=== PATIENT | female | born 1965 | race Caucasian/White ===

== ENCOUNTER 2018-07-10 06:40 | Day surgery (SDC) | payer OTHER ==
--- NOTE | 2018-06-25 21:39 | HP ---
HISTORY AND PHYSICAL: DATE OF ADMISSION/SURGERY: 07/10/18 DATE OF OFFICE VISIT: 06/25/18 SURGEON: America Cervantes MD * (DICTATED BY KATIE SHEIKH) PROCEDURE: Left knee arthroscopy with partial meniscectomy, possible chondroplasty, possible synovectomy. CHIEF COMPLAINT: Left knee pain. HISTORY OF PRESENT ILLNESS: Ms. Henriquez is a 53-year-old female with complaints of left knee pain. She has failed conservative treatment. An MRI shows a lateral meniscus tear. She has elected to proceed with surgery, which is scheduled for 07/10/18. PAST MEDICAL HISTORY: Hypertension. PAST SURGICAL HISTORY: Hernia repair, ovarian cyst excision, bladder sling, and ear tubes. CURRENT MEDICATIONS: 1. Losartan potassium. 2. Hydrochlorothiazide. 3. Myrbetriq. ALLERGIES: No known drug allergies. FAMILY HISTORY: Diabetes, heart disease, hypertension, stroke, RA, and cancer. SOCIAL HISTORY: She is a 53-year-old female. She lives with her . She does not smoke or use drugs. Uses occasional alcohol. REVIEW OF SYSTEMS: A complete 14-point review of systems was reviewed with the patient. It was all negative or noncontributory. PHYSICAL EXAMINATION GENERAL: She is well developed, well nourished, in no acute distress. VITAL SIGNS: She stands 67 inches tall, weighs 285 pounds. Her blood pressure is 122/84 and her heart rate is 80. HEENT: Normocephalic, atraumatic. NECK: Supple. No palpable lymph nodes. PULMONARY: Lungs are clear to auscultation bilaterally. CARDIO: Regular rate and rhythm. Strong S1, S2. ABDOMEN: Soft, nontender, nondistended. NEUROLOGICAL: She is alert and oriented x3. MUSCULOSKELETAL: Left lower extremity, the skin is intact. There are no open wounds or abrasions. She has positive Apley's and Saima's. Range of motion is 5 to 120 degrees of flexion with some pain. 2+ dorsalis pedis pulses and intact sensation. Her lower extremity muscle group strengths are intact at 5/ 5. She does have some tenderness along the medial and lateral joint line. ASSESSMENT AND PLAN: Ms. Henriquez is a 53-year-old female with continued complaints of left knee pain. An MRI confirms a lateral meniscus tear and she has elected to proceed with left knee arthroscopy with partial meniscectomy, possible chondroplasty, and possible synovectomy. The surgery is scheduled for 07/10/[address] Cervantes discussed the risks and benefits of the surgery at today's visit and all of her questions were answered. She will follow up with Dr. Cervantes 2 weeks after the surgery. KATIE SHEIKH [id number]/[facility] #: [id number] [facility]
[~2018-07-10 06:40] MED LIST: Buffered Lidocaine 0.9% SYRIN* 5 ML/SYR SYRINGE INTRADERM ONE; Sodium Citrate/Citric Acid* 15 ML UDC PO ONE
[2018-07-10] MEDS ORDERED: Sodium Citrate/Citric Acid* 15 ML UDC ONE (07:01)
[2018-07-10] MEDS ORDERED: ceFAZolin 1 GM in Dextrose (*) 1 GM/50 ML BAG IVPB ONE (07:01)
[2018-07-10] MEDS ORDERED: ceFAZolin 2 GM PREMIX (*) 2 GM/50 ML BAG IVPB ONE (07:01)
[2018-07-10] MEDS ORDERED: EPINEPHRINE 1 MG/ML 1 ML VIAL ONE (07:10)
[2018-07-10] MEDS ORDERED: methylPREDNISolone ACETATE 80* 80 MG/ML 1 ML VIAL ONE (07:10)
[2018-07-10] MEDS ORDERED: Ropivacaine (OR use only) 2 MG/ML 10 ML ONE (07:11)
[2018-07-10] MEDS ORDERED: Ketorolac INJ* 30 MG/ML 1 ML VIAL IV PRN (07:29)
[2018-07-10] MEDS ORDERED: Naloxone* 0.4 MG/ML 1 ML VIAL IV PRN (07:29)
[2018-07-10] MEDS ORDERED: Ondansetron INJ* 2 MG/ML VIAL IV PRN (07:29)
[2018-07-10] MEDS ORDERED: fentaNYL* 50 MCG/ML 2 ML VIAL (100 MCG VIAL) ONE ×3 (07:37→09:06)
[2018-07-10] MEDS ORDERED: Lidocaine 2% PF * 5 ML VIAL ONE (07:45)
[2018-07-10] MEDS ORDERED: Propofol* 10 MG/ML 20 ML BTL IV PUSH ONE ×2 (07:45→07:46)
[2018-07-10] MEDS ORDERED: Ketorolac INJ* 30 MG/ML 1 ML VIAL ONE (08:49)
[2018-07-10] MEDS: fentaNYL* 50 MCG/ML 2 ML VIAL (100 MCG VIAL) IV PRN ×4 (08:52→09:17)
[2018-07-10] MEDS ORDERED: oxyCODONE/Acetamin 5/325 MG* TAB ONE (09:00)
[2018-07-10 09:41] VITALS: BP 114/71
--- NOTE | 2018-07-11 13:58 | OP ---
OPERATIVE NOTE: DATE OF OPERATION: 07/10/18 DATE OF : 63 ATTENDING SURGEON: America Cervantes MD PURCHASING ADMINISTRATIVE ASSISTANT: KATIE Gutierrez Ms. did help throughout the procedure with preparation of the leg, wound retraction, manipul ation of the knee, and wound closure. ANESTHESIOLOGIST: Dr. Tolentino ANESTHESIA: General. PRE-OP DIAGNOSES: Left knee medial and lateral meniscal tear, jlqf-sv-wyoqqbvf osteoarthritis. POST-OP DIAGNOSES: Left knee radial and medial meniscal tear, parrot-beak type tear of the lateral m eniscus, [id number]-towarq degenerative osteoarthritis in the lateral and patellofemoral compartment s. OPERATIVE PROCEDURE: Left knee arthroscopy with partial medial meniscectomy and partial lateral meni scectomy. COMPLICATIONS: None. ESTIMATED BLOOD LOSS: Less than 25 cc. SPECIMEN: None. BRIEF HISTORY/INDICATION: Ms. Henriquez is a 53-year-old female with the acute-on- chronic left kne e pain and mechanical symptoms. She had MRI confirming a meniscal tear in the past. She failed cons ervative treatment with activity modification, intraarticular injection, and physical therapy. Due t o continued pain and sensation of locking in the knee, she elected to undergo left knee arthroscopy w ith partial meniscectomy, possible chondroplasty, possible synovectomy. Informed consent was obtaine d from the patient. She understood the risks of surgery included, but were not limited to bleeding, infection, damage to nearby structures, continued pain, need for further surgery, intraoperative frac ture, nerve palsy, continued progression of arthritis, continued arthritic pain, stroke, heart attack , blood clot, and . She wished to proceed. INTRAOPERATIVE FINDINGS: Intraoperatively, the patient was noted to have grade 3 and 4 Outerbridge c artilage changes in the patellofemoral and lateral compartments. She had a radial-type tear in the wh ite-red zone in the posterior medial meniscus and a complex tear, oblique-type tear in the white-red zone of the lateral meniscus. The patient had a linear component along the posterior portion of the lateral meniscus. DESCRIPTION OF PROCEDURE: Ms. Henriquez was identified in the preanesthesia unit. Her left lower ex tremity was marked as the correct operative site. Informed consent was signed and placed in the zoie t. The patient was taken to the operating room and placed under general anesthesia. Her left lower extremity was prepped and draped in the usual sterile fashion. Preop time-out was made to correctly identify the patient, side, and site. Appropriate perioperative antibiotics were given within 1 hour of incision. A standard anterolateral portal incision was made with a 15-blade and carried down through the capsul e. Trocar was introduced. As soon as the light and water sources were turned on, there was immediat e visualization of the suprapatellar pouch. A tour of the knee joint was performed. Patellofemoral compartment showed grade 3 and 4 Outerbridge cartilage changes with exposed subchondra l bone and significant cartilage loss. Medial gutter showed no loose body or plica. The medial comp artment showed some grade 2 and 3 Outerbridge cartilage changes along the medial femoral condyle and significant osteophyte along the anteromedial tibial plateau. There was a visible radial tear along the posterior medial meniscus. ACL and PCL appeared to be intact. The knee was placed in a figure-o f-4 position. Lateral meniscus had a complex meniscal tear, which was parrot-beak along the midporti on with a linear component along the posterior portion. There were grade 3 and 4 Outerbridge cartila ge changes with exposed subchondral bone and significant loss of cartilage along the lateral tibial p lateau and lateral femoral condyle. Under direct visualization, a medial portal incision was made with a 15-blade. A probe was introduce d and a second tour of the knee joint was performed. No additional findings were noted. A straight biter and shaver were used to perform partial medial meniscectomy in the white-red zone of the medial meniscus posteriorly. A smooth border of the meniscus was easily obtained. Further probing of the medial meniscus showed no additional tears or displaced fragments. Next, the knee was placed in a fi gure-of-4 position. A straight biter and WideBiter were used to perform partial lateral meniscectomy in the white-red zone. This partial meniscectomy involved the majority of the lateral meniscus. Ra diofrequency ablation wand and shaver were used to further smooth the edge of the lateral meniscus. Further probing of the meniscus showed no additional tears or displaced fragments. The knee was copiously irrigated with sterile saline. All instruments were removed. The incisions w ere closed using interrupted 3-0 nylon suture. Intraarticular injection of 80 mg Depo-Medrol and 6 cc ropivacaine was placed in the knee joint. The patient's incisions were covered with Xeroform, 4x4s, and Webril. Jose wrap and cold pack were placed over this. The patient's anesthesia was reversed without difficulty. She was taken to the PACU in stable condit ion. Intended weightbearing will be weightbearing as tolerated. Intended DVT prophylaxis will be as pirin. She will follow up in 2 weeks' time. [id number]/[facility] #: [id number]
== END 2018-07-10 09:57 | disposition home or self-care (01) ==
LOC: OR 06:40
PROVIDERS: ATTEND Orthopaedic Surgery Adult Reconstructive Orthopaedic Surgery
DX: S83.282A Other tear of lateral meniscus, current injury, left knee, initial encounter (principal); S83.242A Other tear of medial meniscus, current injury, left knee, initial encounter; X58.XXXA Exposure to other specified factors, initial encounter; Y92.9 Unspecified place or not applicable; I10 Essential (primary) hypertension; Z68.41 Body mass index [BMI] 40.0-44.9, adult; Z87.891 Personal history of nicotine dependence; K58.9 Irritable bowel syndrome, unspecified; M19.90 Unspecified osteoarthritis, unspecified site
CPT/HCPCS: 81025; A9270-GY; J0690; J1040; J1885; J2704; J2795; J3010

== ENCOUNTER 2018-11-10 12:02 | Emergency (ER) | payer OTHER ==
--- NOTE | 2018-11-10 12:44 | ED ---
GI/ HPI - HPI Summary HPI Summary: The pt is a 53 y/o female presenting to [facility] c/o heavy vaginal bleeding with clots since 7 days ago. She notes crushing LLQ pain rated 4/10 in severity. She changed 4 pads an hour 3 days ago, 5-6 pads 2 days ago, 4 yesterday and 2 today morning. She got sent to the ED by the Rd Manager bridal consultant. The pt denies N/V/ D and pedal edema. The sx are similar to a past episode of an R ovarian cyst treated by surgery. She notes that she is undergoing menopause. Home Medications Medication Instructions Recorded Confirmed Type Losartan TAB* [Cozaar TAB*] 50 mg PO QAM 11/07/12 11/10/18 History Hydrochlorothiazide TAB* 25 mg PO QAM 06/26/18 11/10/18 History [Hydrodiuril TAB*] - History of Current Complaint Chief Complaint: EDVaginalBleeding Time Seen by Provider: 11/10/18 12:41 Stated Complaint: HEAVY BLEEDING Hx Obtained From: Patient Hx Last Menstrual Period: current Onset/Duration: Started Weeks Ago - 1 week, Still Present, Worse Since - Today Timing: Constant Severity: Moderate Current Severity: Moderate Number of Pads per Hour: 4 Pain Intensity: 4 Location of Pain: Groin Additional Location for Females: Ovaries - L Associated Signs and Symptoms: Negative: Nausea, Vomiting, Diarrhea Additional Signs & Symptoms: Positive: Vaginal Bleeding Aggravating Factor(s): Nothing Alleviating Factor(s): Position - Allergy/Home Medications Allergies/Adverse Reactions: Allergies Allergy/AdvReac Type Severity Reaction Status Date / Time No Known Allergies Allergy Verified 06/26/18 15:25 PMH/Surg Hx/FS Hx/Imm Hx Previously Healthy: No Endocrine/Hematology History: Denies: Hx Diabetes, Hx Thyroid Disease Cardiovascular History: Reports: Hx Hypertension Denies: Hx Congestive Heart Failure, Hx Pacemaker/ICD, Other Cardiovascular Problems/Disorders Respiratory History: Denies: Hx Asthma, Hx Chronic Obstructive Pulmonary Disease (COPD), Other Respiratory Problems/Disorders GI History: Reports: Hx Irritable Bowel - patient states she has 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 Denies: Hx Ulcer, Other GI Disorders History: Reports: Other Problems/Disorders - weak bladder, sees Dr Moreno- takes medication Denies: Hx Renal Disease Musculoskeletal History: Reports: Hx Arthritis - Osteoarthritis bilateral knees , Other Musculoskeletal History - impingement in left shoulder Sensory History: Reports: Hx Contacts or Glasses - Contacts and glasses, Hx Hearing Aid Opthamlomology History: Reports: Hx Contacts or Glasses - Contacts and glasses Neurological History: Denies: Other Neuro Impairments/Disorders Psychiatric History: Denies: Hx Panic Disorder - Cancer History Cancer Type, Location and Year: None reported Hx Chemotherapy: No Hx Radiation Therapy: No - Surgical History Surgery Procedure, Year, and Place: Ovarian Cyst removal; bladder sling; nose repaired; R hernia age 2 mos Hx Anesthesia Reactions: No Infectious Disease History: No Infectious Disease History: Denies: Hx Hepatitis, Hx Human Immunodeficiency Virus (HIV), Traveled Outside the [place] in Last 30 Days - Family History Known Family History: Positive: Cardiac Disease, Hypertension, Diabetes, Other - RA, Cancer, [place] - Social History Occupation: Employed Full-time Lives: With Family Alcohol Use: Rare Substance Use Type: Reports: None Smoking Status (MU): Former Smoker Amount Used/How Often: 1 pack every 3 days for 4 years Have You Smoked in the Last Year: No Review of Systems Positive: Abdominal Pain - LLQ . Negative: Vomiting, Diarrhea, Nausea Genitourinary: Other - Vaginal bleeding with clots Positive: no symptoms reported Negative: Edema All Other Systems Reviewed And Are Negative: Yes Physical Exam - Summary Physical Exam Summary: Appearance: Well appearing, no pain distress Skin: warm, dry, reflects adequate perfusion Head/face: normal Eyes: EOMI, ANDREWS ENT: normal Neck: supple, non-tender Respiratory: CTA, breath sounds present Cardiovascular: RRR, pulses symmetrical Abdomen: tender in the LLQ , soft Bowel sounds : present Musculoskeletal: normal, strength/ROM intact Neuro: normal, sensory motor intact, A&Ox3 Triage Information Reviewed: Yes Vital Signs On Initial Exam: Initial Vitals Temp Pulse Resp BP Pulse Ox 97.8 F 80 16 147/85 100 11/10/18 12:04 11/10/18 12:04 11/10/18 12:04 11/10/18 12:04 11/10/18 12:04 Vital Signs Reviewed: Yes Diagnostics - Vital Signs Vital Signs Temp Pulse Resp BP Pulse Ox 11/10/18 12:04 97.8 F 80 16 147/85 100 - Laboratory Result Diagrams: 11/10/18 13:32 11/10/18 13:32 Lab Statement: Any lab studies that have been ordered have been reviewed, and results considered in the medical decision making process. - Ultrasound No standard instances Ultrasound Interpretation Completed By: Radiologist Summary of Ultrasound Findings: TRANSVAGINAL US IMPRESSION: THE ENDOMETRIUM IS THICKENED MEASURING UP TO 1.5 CM. The ED physician reviewed this radiology report. GIGU Course/Dx - Course Course Of Treatment: A 53 year-old F presents to the ED with a CC of heavy vaginal bleeding with clots since 7 days ago. . She note crushing LLQ pain but denies N/V/D and pedal edema. A physical exam revealed LLQ tenderness. A transvaginal US reveals endometrial thickening reaching 1.5 cm. I discussed he careof the pt with Dr. Kelley who recommended discharging the pt with a referral to the Rd Manager office.Patient will be discharged with a final Dx of Vaginal bleeding. Pt is agreeable with this plan. Allergies noted. - Diagnoses Differential Diagnoses - Female: Other - DUB/fibroid uterus Provider Diagnoses: Vaginal bleeding - Physician Notifications Discussed Care Of Patient With: Dean Dior - grinder gear Time Discussed With Above Provider: 14:28 Instructed by Provider To: Have Pt Call For Appt. Discharge - Sign-Out/Discharge Documenting (check all that apply): Patient Departure - DC - Discharge Plan Condition: Stable Disposition: HOME Patient Education Materials: Dysfunctional Uterine Bleeding (ED) Referrals: Luis Valentin MD [Primary Care Provider] - Dean Dior MD [Medical Doctor] - Additional Instructions: Follow up with Dr. Dior-Rd Manager as soon as possible. Return to the ED for any new or worsening symptoms. - Billing Disposition and Condition Condition: STABLE Disposition: Home - Attestation Statements Document Initiated by Scribe: Yes Documenting Scribe: Mag Brice Provider For Whom Asiya is Documenting (Include Credential): Dr. Emerson Sims MD Scribe Attestation: Mag Mccoy , scrnishanted for Dr. Emerson Sims MD on 11/10/18 at 1642. Scribe Documentation Reviewed: Yes Provider Attestation: The documentation as recorded by the Mag chavez accurately reflects the service I personally performed and the decisions made by me, Dr. Emerson Sims MD Status of Scribe Document: Viewed
[2018-11-10 13:40] LABS: ABS Basophils 0.1 10^3/ul (0-0.2); ABS Eosinophils 0.2 10^3/ul (0-0.6); ABS Monocytes 0.8 10^3/ul (0-0.8); ABS Neutrophils 8.7 10^3/ul (1.5-7.7); ABS Nucleated RBC 0 10^3/ul; Eosinophil % 1.9 %; Hematocrit 36 % (35-47); Mean Corpuscular HGB Conc 34 g/dl (31-36); Mean Corpuscular Hemoglobin 27 pg (27-31); Mean Corpuscular Volume 79 fL (80-97); Mean Platelet Volume 7.4 fL (7.4-10.4); Nucleated Red Blood Cells % 0; Platelet Count 391 10^3/ul (150-450); Red Blood Count 4.48 10^6/ul (4.00-5.40); Red Cell Distribution Width 16 % (10.5-15); White Blood Count 11.9 10^3/ul (3.5-10.8)
[2018-11-10 13:51] LABS: Activated Partial Thrombo Time 30.9 seconds (26.0-36.3); INR 0.94 (0.77-1.02)
[2018-11-10 14:01] LABS: ALT 16 U/L (7-52); AST 17 U/L (13-39); Albumin 3.9 g/dL (3.2-5.2); Albumin/Globulin Ratio 1.1 (1-3); Alkaline Phosphatase 77 U/L (34-104); Anion Gap 7 mmol/L (2-11); BUN/Creatinine Ratio 15.4 (8-20); Blood Urea Nitrogen 10 mg/dL (6-24); CO2 Carbon Dioxide 28 mmol/L (22-32); Calcium 9.3 mg/dL (8.6-10.3); Chloride 104 mmol/L (101-111); Globulin 3.6 g/dL (2-4); Glucose 92 mg/dL (70-100); Potassium 3.5 mmol/L (3.5-5.0); Sodium 139 mmol/L (135-145); Total Protein 7.5 g/dL (6.4-8.9)
[2018-11-10 14:10] LABS: HCG Pregnancy < 0.60 mIU/mL
[2018-11-10 14:52] VITALS: BP 141/81
== END 2018-11-10 14:51 | disposition home or self-care (01) ==
LOC: ED 12:02
DX: N93.9 Abnormal uterine and vaginal bleeding, unspecified (principal); R10.32 Left lower quadrant pain; Z87.891 Personal history of nicotine dependence
CPT/HCPCS: 36415; 76830; 80053; 83690; 84702; 85025; 85610; 85730; 99283

== ENCOUNTER 2019-03-06 05:41 | Day surgery (SDC) | payer OTHER ==
[~2019-03-06 05:41] MED LIST changes: -Buffered Lidocaine 0.9% SYRIN* 5 ML/SYR SYRINGE INTRADERM ONE; +Buffered Lidocaine 1% SYRIN* 1 ML/SYRINGE INTRADERM ONE; -Sodium Citrate/Citric Acid* 15 ML UDC PO ONE
[2019-03-06] MEDS ORDERED: Lactated Ringers 1000 ML Bag* 1,000 ML IV SCH (06:00)
[2019-03-06] MEDS ORDERED: Acetaminophen TAB* 325 MG PO ONE (06:00)
[2019-03-06] MEDS ORDERED: Acetaminophen TAB* 325 MG ONE (06:08)
[2019-03-06] MEDS ORDERED: Buffered Lidocaine 1% SYRIN* 1 ML/SYRINGE INTRADERM ONE (06:08)
[2019-03-06 06:36] LABS: Hematocrit 33 % (33-41); Hemoglobin 11.4 g/dL (12.0-16.0); Mean Corpuscular HGB Conc 34 g/dL (31-36); Mean Corpuscular Hemoglobin 25 pg (27-31); Mean Corpuscular Volume 74 fL (80-97); Mean Platelet Volume 7.4 fL (7.4-10.4); Platelet Count 325 10^3/uL (150-450); Red Blood Count 4.52 10^6 /uL (3.70-4.87); Red Cell Distribution Width 16 % (10.5-15); White Blood Count 9.7 10^3/uL (3.5-10.8)
[2019-03-06] MEDS ORDERED: Silver Nitrate/Potassium Nitr* 1 EA STICK ONE (07:07)
[2019-03-06] MEDS ORDERED: fentaNYL* 50 MCG/ML 2 ML VIAL (100 MCG VIAL) ONE (07:22)
[2019-03-06] MEDS ORDERED: Midazolam* 1 MG/ML 2 ML VIAL (2 MG) ONE (07:22)
[2019-03-06] MEDS ORDERED: Lidocaine 2% PF * 5 ML VIAL ONE (07:23)
[2019-03-06] MEDS ORDERED: Ondansetron INJ* 2 MG/ML VIAL ONE (07:23)
[2019-03-06] MEDS ORDERED: Dexamethasone IV* 4 MG/ML 1 ML (4 MG) ONE (07:23)
[2019-03-06] MEDS ORDERED: Propofol* 10 MG/ML 20 ML BTL ONE (07:23)
[2019-03-06] MEDS ORDERED: Famotidine IV* 10 MG/ML 2 ML (20 mg) ONE (07:27)
[2019-03-06] MEDS ORDERED: Naloxone* 0.4 MG/ML 1 ML VIAL IV PRN (07:53)
[2019-03-06] MEDS ORDERED: Acetaminophen TAB* 325 MG PO PRN (07:53)
[2019-03-06] MEDS ORDERED: PROCHLORPERAZINE INJ 5 MG/ML 2 ML VIAL IV PRN (07:53)
[2019-03-06] MEDS ORDERED: DiMENhydriNATE IV* 50 MG/ML VIAL IV PUSH PRN (07:53)
[2019-03-06] MEDS ORDERED: Levalbuterol 0.63MG/3ML NEB* UNIT OF USE INH PRN (07:53)
[2019-03-06] MEDS ORDERED: fentaNYL* 50 MCG/ML 2 ML VIAL (100 MCG VIAL) IV PRN (07:53)
[2019-03-06] MEDS ORDERED: diPHENhydraMINE IV* 50 MG/ML 1 ml VIAL (BENADRYL) IV PRN (07:53)
[2019-03-06] MEDS ORDERED: Ondansetron INJ* 2 MG/ML VIAL IV PRN (07:53)
[2019-03-06] MEDS ORDERED: HYDROcodone/ACETAMIN 5-325 MG* 1 TAB PO PRN ×2 (07:53)
[2019-03-06 09:25] VITALS: BP 159/90
--- NOTE | 2019-03-06 10:05 | OP ---
DATE OF OPERATION: 03/06/19 - [facility] DATE OF : 63 SURGEON: Dean Dior MD. ANESTHESIOLOGIST: Dr. Stack. ANESTHESIA: General endotracheal. PRE-OP DIAGNOSIS: Abnormal uterine bleeding. POST-OP DIAGNOSES: Abnormal uterine bleeding and endometrial polyp. OPERATIVE PROCEDURE: 1. Hysteroscopy. 2. Dilation and curettage. 3. Endometrial polypectomy with MyoSure 4. Endometrial ablation using NovaSure. ESTIMATED BLOOD LOSS: Minimal. URINE OUTPUT: 50 cc. IV FLUID: 700 cc lactated Ringer's. HYSTEROSCOPIC DEFICIT: 200 cc of normal saline. MATERIALS TO LAB: Endometrial curettings and endometrial polyp. INDICATIONS: This patient was a 53-year-old 2, para 2 who presented after having significant and heavy abnormal uterine bleeding. An ultrasound was essentially unremarkable without significantly thickened endometrium and an endometrial biopsy returned with benign endometrium. We discussed the patient' s options and she desired to proceed with an endometrial ablation. She was extensively counseled and consent was signed. FINDINGS: Uterine cavity normal other than an apparent posterior endometrial polyp. The polyp was fairly large, but very smooth and benign in appearance. COMPLICATIONS: None. DESCRIPTION OF PROCEDURE: The risks, benefits, and alternatives were described to the patient and informed consent was obtained. The patient was taken to the operating room with IV running where general anesthesia was induced and found to be adequate. The patient was prepped and draped in the normal sterile fashion in the high lithotomy position [facility]. A time-out was preformed. The bladder was emptied. A bivalve speculum was placed in the vagina and a single tooth tenaculum was placed on the anterior cervix. The uterus sounded to 11 cm. The cervix was then gently dilated using Hanks dilators. A diagnostic hysteroscope was then advanced through the cervix and into the uterine cavity with saline running. On entry into the uterine cavity, there was a moderate sized endometrial polyp present on the posterior aspect of the uterine wall. No other abnormalities were noted. The hysteroscope was then removed and a MyoSure hysteroscope was prepared. Once the MyoSure hysteroscope was advanced into the uterus, a MyoSure LITE device was then prepared and used to completely resect the endometrial polyp. Once this had been completely removed the hysteroscope was removed. A curetting of the endometrial cavity was performed with curettings collected on Kerry. The NovaSure device was then prepared. The device was advanced through the cervix and into the uterine cavity and opened. Cavity length was measured at 5.5 cm and width was 4.2 cm. Power calculated at 127 and after a negative cavity assessment, the ablation was performed for 95 sec. At that time, the device was removed. The hysteroscope was replaced into the uterine cavity and there appeared to be good ablation of the entire endometrial surface. The hysteroscope was removed. The tenaculum was removed from the cervix with good hemostasis. The speculum was then removed and the patient was returned to the supine position. The patient tolerated the procedure well. Sponge, lap, and needle counts were correct x2. [id number]/[facility] #: [id number] [facility]
== END 2019-03-06 09:34 | disposition home or self-care (01) ==
LOC: OR 05:41
PROVIDERS: ATTEND Obstetrics & Gynecology
DX: N93.9 Abnormal uterine and vaginal bleeding, unspecified (principal); N84.0 Polyp of corpus uteri; I10 Essential (primary) hypertension; Z87.891 Personal history of nicotine dependence; Z68.42 Body mass index [BMI] 45.0-49.9, adult; K58.9 Irritable bowel syndrome, unspecified
CPT/HCPCS: 36415; 81025; 85027; 88305; A9270-GY; J1100; J2250; J2405; J2704; J3010

== ENCOUNTER 2020-02-02 13:22 | Observation (INO) | payer OTHER ==
--- OUTSIDE RECORDS SUMMARY | 2020-02-02 13:39 | XMS REPORT | Continuity of Care Document ---
:1965 External Reference #:[id number] Author Name Savita Gillis O.D. (transmitted by agent of provider Tee Umanzor) Address [address] [place] [address] Care Team Providers Name Role Phone Luis Valentin M.D. - Family Medicine Care Team Information Paralegal Problems Active Problems Provider Date Essential hypertension Onset: Chalazion Caroline Brower O.D. Onset: 07/04/2015 Internal hordeolum Savita Gillis O.D. Onset: 07/07/2015 Nuclear senile cataract Savita Gillis O.D. Onset: 06/12/2018 Regular astigmatism Savita Gillis O.D. Onset: 06/12/2018 Presbyopia Savita Gillis O.D. Onset: 06/12/2018 Myopia Savita Gillis O.D. Onset: 01/13/2020 Social History Type Date Description Comments Sex Unknown ETOH Use Occasionally consumes alcohol Tobacco Use Start: Unknown Patient has never smoked Recreational Drug Use Denies Drug Use Smoking Status Reviewed: 01/13/20 Patient has never smoked Allergies, Adverse Reactions, Alerts Description No Known Drug Allergies Medications Active Medications SIG Qnty Indications Ordering Date Provider Losartan Potassium Unknown 50mg Tablets Hydrochlorothiazide Daily Unknown 25mg Tablets Olmesartan Medoxomil Take 1 Tablet By Unknown 20mg Tablets Mouth Once Daily For Blood Pressure Sertraline HCL Take 1 To 2 Unknown 25mg Tablets Tablets By Mouth In The Morning For Anxiety And For Depression Immunizations Description No Information Available Vital Signs Description No Information Available Results Description No Information Available Procedures Description No Information Available Medical Devices Description No Information Available Encounters Description No Information Available Assessments Date Code Description Provider 01/13/2020 H25.13 Age-related nuclear cataract, bilateral Savita Gillis O.D. 01/13/2020 H52.223 Regular astigmatism, bilateral Savita Gillis O.D. 01/13/2020 H52.4 Presbyopia Savita Gillis O.D. 01/13/2020 H52.13 Myopia, bilateral Savita Gillis O.D. Plan of Treatment 01/13/2020 - aSvita Gillis O.D.H25.13 Age-related nuclear cataract, bilateralComments:Smoking can increase the risk of developing or worsening any eye related disease, as well as affect your overall health. If you are a smoker , we strongly recommend that you quit.If you are not a smoker, we strongly recommend that you do not start. You have nuclear sclerosis, which is hardening of your natural lens. This is normal as a person ages.Follow up:1 Year Follow Up DFE/CL'S FIT You can expect to have your eyes dilated at your next visit. If Dr. Gillis orders any additional testing, it may require extra time. We recommend that you bring sunglasses, as dilation drops often make you light sensitive until they wear off. We always recommend you bring someone to drive you home if you are uncomfortable driving with your eyes dilated. If you have any questions before your next visit, feel free to call our office at [phone].H52.223 Regular astigmatism, bilateralComments:Astigmatism is a common vision condition that happens when a person's cornea is not symmetrical. Dr. Gillis has given you a prescription to correct for this.H52.4 PresbyopiaComments:You have presbyopia. This is when the lens in your eye loses the ability to change focus, and happens as we age. A pair of reading glasses will help you see up close.H52.13 Myopia, bilateralComments:You have Myopia, or near sightedness. I have given you a prescription for glasses. Functional Status Description No Information Available Mental Status Description No Information Available Referrals Description No Information Available
--- NOTE | 2020-02-02 14:21 | ED ---
Syncope/Near Syncope - HPI Summary HPI Summary: This patient is a 54 y/o female presenting to [facility] for a syncopal episode today. Patient reports she has been feeling lightheaded since yesterday. She notes today while working at [employer] she felt lightheaded and was placed in a wheelchair. She notes while sitting on the wheelchair she passed out. Patient estimates she passed out for about less than 1 minute. She denies chest pain, shortness of breath, headache, blurry vision, nausea, vomiting, constipation. Patient does not have hx of syncope. PMHx: HTN. Denies hx of DM. Denies tobacco and drug use. Patient reports occasional alcohol use. Home Medications Medication Instructions Recorded Confirmed Type Hydrochlorothiazide TAB* 25 mg PO DAILY 06/26/18 02/02/20 History [Hydrodiuril TAB*] Meclizine TAB* [Antivert 12.5 TAB*] 12.5 - 25 mg PO TID PRN 02/02/20 02/02/20 History Multivitamins/Minerals TAB* 1 tab PO DAILY 02/02/20 02/02/20 History [Theragran/minerals TAB*] Olmesartan (NF) [Benicar (NF)] 20 mg PO DAILY 02/02/20 02/02/20 History Sertraline* [Zoloft*] 25 - 50 mg PO DAILY 02/02/20 02/02/20 History - History Of Current Complaint Chief Complaint: EDSyncope Time Seen by Provider: 02/02/20 14:13 Hx Obtained From: Patient Onset/Duration: Sudden Onset Timing: Seconds Context: Witnessed Aggravating Factor(s): Nothing Alleviating Factor(s): Nothing Associated Signs And Symptoms: Other - NEGATIVE: chest pain, SOB, headache, blurry vision, nausea, vomiting, constipation. - Allergies/Home Medications Allergies/Adverse Reactions: Allergies Allergy/AdvReac Type Severity Reaction Status Date / Time No Known Allergies Allergy Verified 02/02/20 13:33 Home Medications: Home Medications Hydrochlorothiazide TAB* [Hydrodiuril TAB*] 25 mg PO DAILY 06/26/18 [History Confirmed 02/02/20] Meclizine TAB* [Antivert 12.5 TAB*] 12.5 - 25 mg PO TID PRN 02/02/20 [History Confirmed 02/02/20] Multivitamins/Minerals TAB* [Theragran/minerals TAB*] 1 tab PO DAILY 02/02/20 [ History Confirmed 02/02/20] Olmesartan (NF) [Benicar (NF)] 20 mg PO DAILY 02/02/20 [History Confirmed ] Sertraline* [Zoloft*] 25 - 50 mg PO DAILY 02/02/20 [History Confirmed 02/02/20] PMH/Surg Hx/FS Hx/Imm Hx Endocrine/Hematology History: Denies: Hx Diabetes, Hx Thyroid Disease Cardiovascular History: Reports: Hx Hypertension - ON DAILY MEDS, STATES WELL CONTROLLED Denies: Hx Congestive Heart Failure, Hx Pacemaker/ICD, Other Cardiovascular Problems/Disorders Respiratory History: Denies: Hx Asthma, Hx Chronic Obstructive Pulmonary Disease (COPD), Other Respiratory Problems/Disorders GI History: Reports: Hx Irritable Bowel - patient states she has 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 Denies: Hx Ulcer, Other GI Disorders History: Reports: Other Problems/Disorders - weak bladder, sees Dr Moreno- takes medication Denies: Hx Renal Disease Musculoskeletal History: Reports: Hx Arthritis - Osteoarthritis bilateral knees , HAD SURGERY LFT KNEE 06/2019, Other Musculoskeletal History - impingement in left shoulder; AFTER KNEE SURGERY FELL & REINJURED KNEE Sensory History: Reports: Hx Contacts or Glasses - Contacts and glasses WILL NOT BE WEARING EITHER, Hx Hearing Aid Opthamlomology History: Reports: Hx Contacts or Glasses - Contacts and glasses WILL NOT BE WEARING EITHER Neurological History: Denies: Other Neuro Impairments/Disorders Psychiatric History: Denies: Hx Panic Disorder - Cancer History Cancer Type, Location and Year: None reported Hx Chemotherapy: No Hx Radiation Therapy: No - Surgical History Surgical History: Yes Surgery Procedure, Year, and Place: 2 0O9 Ovarian Cyst removal; [facility]. 2007bladder sling; [facility]. 2006 nose repaired; [facility]. 1966 1YRS OLD R hernia REPAIR. Ablation. Left knee surgery Hx Anesthesia Reactions: No Infectious Disease History: No Infectious Disease History: Denies: Hx Hepatitis, Hx Human Immunodeficiency Virus (HIV), Traveled Outside the [place] in Last 30 Days - Family History Known Family History: Positive: Cardiac Disease, Hypertension, Diabetes, Other - RA, Cancer, [place] - Social History Alcohol Use: Rare Alcohol Amount: 1-2 GLASSES MONTH Substance Use Type: Reports: None Smoking Status (MU): Former Smoker Type: Cigarettes Amount Used/How Often: 1 pack every 3 days for 4 years Have You Smoked in the Last Year: No Review of Systems Negative: Fever Negative: Blurred Vision Negative: Chest Pain Negative: Shortness Of Breath Negative: Vomiting, Nausea, Other - NEGATIVE: constipation Neurological/Mental Status: Other - POSITIVE: lightheadedness Positive: Syncope. Negative: Headache All Other Systems Reviewed And Are Negative: Yes Physical Exam - Summary Physical Exam Summary: VITAL SIGNS: Reviewed. GENERAL: Patient is a well-developed and obese female who is lying comfortable in the stretcher. Patient is not in any acute respiratory distress. HEAD AND FACE: No signs of trauma. No ecchymosis, hematomas or skull depressions. No sinus tenderness. EYES: PERRLA, EOMI x 2, No injected conjunctiva, no nystagmus. EARS: Hearing grossly intact. Ear canals and tympanic membranes are within normal limits. MOUTH: Oropharynx within normal limits. NECK: Supple, trachea is midline, no adenopathy, no JVD, no carotid bruit, no c- spine tenderness, neck with full ROM. CHEST: Symmetric, no tenderness at palpation LUNGS: Clear to auscultation bilaterally. No wheezing or crackles. CVS: Regular rate and rhythm, S1 and S2 present, no murmurs or gallops appreciated. ABDOMEN: Soft, non-tender. No signs of distention. No rebound, no guarding, and no masses palpated. Bowel sounds are normal. EXTREMITIES: FROM in all major joints, no edema, no cyanosis or clubbing. NEURO: Alert and oriented x 3. No acute neurological deficits. Speech is normal and follows commands. SKIN: Dry and warm GCS: 15 Triage Information Reviewed: Yes Vital Signs On Initial Exam: Initial Vitals Temp Pulse Resp BP Pulse Ox 98.4 F 74 16 131/94 99 02/02/20 13:30 02/02/20 13:30 02/02/20 13:30 02/02/20 13:30 02/02/20 13:30 Vital Signs Reviewed: Yes Procedures - Sedation Patient Received Moderate/Deep Sedation with Procedure: No Diagnostics - Vital Signs Vital Signs Temp Pulse Resp BP Pulse Ox 02/02/20 13:30 98.4 F 74 16 131/94 99 - Laboratory Result Diagrams: 02/02/20 14:20 02/02/20 14:20 Lab Statement: Any lab studies that have been ordered have been reviewed, and results considered in the medical decision making process. - Radiology Chest XR Radiology Interpretation Completed By: Radiologist Summary of Radiographic Findings: IMPRESSION: No radiographic evidence of acute cardiopulmonary disease. Dr. Potter has reviewed this report. - CT Brain CT CT Interpretation Completed By: Radiologist Summary of CT Findings: IMPRESSION: Normal CT of the brain. Dr. Potter has reviewed this report. - EKG 14:24 Cardiac Rate: NL - at 68 bpm EKG Rhythm: Sinus Rhythm EKG Comparison: No Significant Change - similar to prior on 10/24/15. Summary of EKG Findings: EKG at 1424 shows sinus rhythm at a rate of [address] elevations. Q wave in leads III and aVF. Diffuse ST abnormalities. Similar to prior EKG on 10/24/15. This EKG was interpreted and reviewed by ED physician. Re-Evaluation - Re-Evaluation First Eval Re-Evaluation Time: 16:40 Comment: Reviewed results with patient. Discussed admission plan with patient and she agrees. Course/Dx Assessment/Plan: This patient is a 54 y/o female presenting to [facility] for a syncopal episode today. Patient reports she has been feeling lightheaded since yesterday. She notes today while working at [employer] she felt lightheaded and was placed in a wheelchair. She notes while sitting on the wheelchair she passed out. Patient estimates she passed out for about less than 1 minute. She denies chest pain, shortness of breath, headache, blurry vision, nausea, vomiting, constipation. Patient does not have hx of syncope. PMHx: HTN. Denies hx of DM. Denies tobacco and drug use. Patient reports occasional alcohol use. In the ED course the patient was placed in a acquisition marketing manager, IV access was obtained, IV fluids were started. Past medical records were reviewed. Blood test w/o a significant abnormality except for WBCs of 13.7, potassium of 3.3, chloride is 98, glucose is 112, magnesium is 1.7. Head CT impression: No acute pathology. Chest x-ray impression: No acute cardiopulmonary pathology. I discussed my physical exam and test results with Dr. Daugherty from the hospitalist services and she agrees to admit the patient to her services. The patient is hemodynamically stable, alert and oriented x 3. - Diagnoses Provider Diagnoses: Syncope - Physician Notifications Discussed Care of Patient With: Connie Daugherty - hospitalist Time Discussed With Above Provider: 18:53 Instructed by Provider To: Admit As Inpatient Discharge ED - Sign-Out/Discharge Documenting (check all that apply): Patient Departure - Admit to [facility] - Discharge Plan Condition: Stable Disposition: ADMITTED TO [facility] Referrals: Lius Valentin MD [Primary Care Provider] - - Attestation Statements Document Initiated by Scribe: Yes Documenting Scribe: Sandee Mosley Provider For Whom Scribe is Documenting (Include Credential): Fer Potter MD Scribe Attestation: Sandee Mccoy, scribed for Fer Potter MD on 02/02/20 at 1938. Status of Scribe Document: Ready
[2020-02-02 14:41] LABS: ABS Basophils 0.1 10^3/ul (0-0.2); ABS Eosinophils 0.2 10^3/ul (0-0.6); ABS Lymphocytes 1.6 10^3/ul (1.0-4.8); ABS Monocytes 0.7 10^3/ul (0-0.8); ABS Neutrophils 11.2 10^3/ul (1.5-7.7); Eosinophil % 1.1 %; Hematocrit 37 % (35-47); Hemoglobin 12.8 g/dL (12.0-16.0); Lymphocyte % 11.6 %; Mean Corpuscular HGB Conc 35 g/dL (31-36); Mean Corpuscular Hemoglobin 28 pg (27-31); Mean Corpuscular Volume 81 fL (80-97); Mean Platelet Volume 7.6 fL (7.4-10.4); Nucleated Red Blood Cells % 0.1; Platelet Count 365 10^3/uL (150-450); Red Blood Count 4.55 10^6 /uL (3.70-4.87); Red Cell Distribution Width 16 % (10-15); White Blood Count 13.7 10^3/uL (3.5-10.8)
[2020-02-02 15:04] LABS: Albumin 4.1 g/dL (3.2-5.2); Albumin/Globulin Ratio 1.2 (1-3); BUN/Creatinine Ratio 16.7 (8-20); Calcium 9.9 mg/dL (8.6-10.3); EGFR African American 101.8 (>60); EGFR Non-African American 84.1 (>60); Globulin 3.5 g/dL (2-4); Potassium 3.3 mmol/L (3.5-5.0); Total Bilirubin 0.3 mg/dL (0.2-1.0); Total Protein 7.6 g/dL (6.4-8.9)
[2020-02-02 15:38] LABS: Magnesium 1.7 mg/dL (1.9-2.7)
[2020-02-02] MEDS ORDERED: Magnesium Oxide TAB* 400 MG PO ONE (15:48)
[2020-02-02] MEDS ORDERED: Acetaminophen TAB* 325 MG PO PRN (18:59)
[2020-02-02] MEDS ORDERED: Potassium Chlor TAB* 20 MEQ TAB.ER PO ONE (19:21)
[2020-02-02] MEDS ORDERED: Enoxaparin(*) 40 MG/0.4 ML SYR SUBCUT SCH (19:30)
[2020-02-02] MEDS ORDERED: NS 0.9% 1000 ML** 1,000 ML IV ONE (20:47)
[2020-02-02 20:50] LABS: TSH (Thyroid Stimulating Horm) 1.77 mcIU/mL (0.34-5.60)
--- NOTE | 2020-02-02 23:43 | HP ---
CC: Dr. Valentin * HISTORY AND PHYSICAL: DATE OF ADMISSION: 02/02/20 PROVIDER: Sukhwinder Carroll NP. PRIMARY CARE PROVIDER: Dr. Valentin. ATTENDING PHYSICIAN WHILE IN THE HOSPITAL: Dr. Connie Daugherty * (dictated by Sukhwinder Carroll NP). CHIEF COMPLAINT: Syncope. HISTORY OF PRESENT ILLNESS: Ms. 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 She reports that the nurse came in. They sat her in the chair and then she had a syncopal episode lasting approximately 1 minute. The patient denies any associated chest pain, dizziness, and lightheadedness. She denies any shortness of breath, diaphoresis, cough, hemoptysis. No nausea, vomiting, diarrhea or abdominal pain. No gross hematuria or dysuria. Denies any focal weakness or sensory loss. She did complain of seeing some sparkles in front of her eyes. She denies any dysphagia , arthralgias, myalgias, rashes, lesions, open sores, psychosis or anxiety. While in the emergency room, the patient had routine lab work drawn. She had orthostatic vital signs which did not show any orthostasis. Due to her syncopal episode, Hospital Medicine was asked to see and evaluate for admission. Of note, the patient does report she has recently been treated for sinus infection with amoxicillin and today is day 7. She also has been taking some decongestants to help with the sinusitis, unknown name, but does report that there were safe for people with hypertension. PAST MEDICAL HISTORY: Significant for hypertension, incontinence, and anxiety. PAST SURGICAL HISTORY: 1. Ablation. 2. Left knee meniscus repair. HOME MEDICATIONS: Include: 1. Oxybutynin 10 mg p.o. daily. 2. Benicar 20 mg p.o. daily. 3. Hydrochlorothiazide 25 mg p.o. daily. 4. Sertraline 25 mg p.o. daily. ALLERGIES: No known drug allergies. FAMILY HISTORY: No reported history of coronary artery disease, diabetes or cancer in the family. SOCIAL HISTORY: The patient is a former smoker. She quit 38 years ago. She does report occasional alcohol use. No illicit drug use. She is . Surrogate decision maker in the she is unable to make her own decisions is her . She is a full code. REVIEW OF SYSTEMS: A 14-point review of systems was completed. All pertinent positives were mentioned in the HPI, otherwise were negative. PHYSICAL EXAMINATION GENERAL: At this time, Ms. Henriquez is alert and oriented, resting on the stretcher in the emergency room. She is in no acute distress. VITAL SIGNS: Blood pressure 148/85, heart rate is 70, respirations are 15, O2 saturation 97%, temperature was 98.4. HEENT: Head is atraumatic, normocephalic. Eyes: EOMs are intact. Pupils are equal, round, and reactive to light at 2 mm. Oral mucosa is moist. NECK: Supple. LUNGS: Clear to auscultation bilaterally. No wheezes, rales or rhonchi. CARDIAC: S1, S2. Regular rate and rhythm. No murmurs, rubs or gallops. ABDOMEN: Soft and nontender. Bowel sounds are present x4. EXTREMITIES: She is able to move all 4 extremities. There is no clubbing or cyanosis. NEUROLOGIC: She is awake, alert, oriented x3. Speech is clear. Thought process is intact. Cranial nerves II through XII are grossly intact. She has no focal deficits. Xhscuv-ha-hsuk is intact. Smile is equal. Tongue is midline. Heel-to- reynolds is intact. Push-pull is intact and handgrips are equal. SKIN: Intact. DIAGNOSTIC STUDIES/LAB DATA: WBCs are 13.7, RBCs 4.55, hemoglobin 12.8, hematocrit is 37, platelet count 365. Absolute neutrophils are 11.2. Sodium 137, potassium 3.3, chloride 98, carbon dioxide is 30, anion gap was 9, BUN was 12, creatinine 0.72, glucose was 112, calcium 9.9, magnesium 1.7, total bilirubin 0.30. ASTs were 13. ALTs were 14. Alkaline phosphatase was 74. Troponin was 0.00. Urine is currently pending. TSH is pending. She had a CT of the brain that showed normal CT of the brain. She had a chest x-ray, radiologist's impression: No evidence of acute cardiopulmonary disease. She had electrocardiogram, which showed sinus rhythm at a rate of 68, P wave inversion in aVR, flat T waves in V2, V3, V4, and V5. ASSESSMENT AND PLAN: is a 54-year-old female with past medical history significant for hypertension, anxiety and incontinence, who presented to the emergency room with complaints of syncopal episode. She will be admitted under observation for: 1. Syncope. It is unclear the source of her syncope at this time. It could be vasovagal versus recent upper respiratory infection versus related to dehydration. The patient does report that she takes medicines for her blood pressure, hydrochlorothiazide and Benicar. 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 Due to these findings, we will monitor her telemetry to rule out any arrhythmias. I will get a transthoracic echocardiogram to rule out any valvular abnormalities. I will also get urine, UA, and C and S to rule out any other underlying infection. 2. Hypertension. The patient should continue on Benicar as previously prescribed. I will hold her hydrochlorothiazide. 3. Urinary incontinence. She can continue her oxybutynin. 4. Anxiety. She can continue her sertraline. 5. FEN: She can have a regular and low-sodium diet. 6. Code status: She is a full code. 7. DVT prophylaxis: I will place her on Lovenox subcu. TIME SPENT: Time spent on this admission was 60 minutes, greater than half that time was spent at the bedside reviewing events leading thus far to her hospitalization, performing physical exam, and reviewing my plan of care. I have discussed this with my attending, Dr. Connie Daugherty; she is in agreement with my plan. SUKHWINDER CARROLL, TIE PRESSER [id number]/[facility] #: [id number] CORY
[2020-02-03 06:12] LABS: ABS Basophils 0.1 10^3/ul (0-0.2); ABS Eosinophils 0.2 10^3/ul (0-0.6); ABS Monocytes 0.5 10^3/ul (0-0.8); ABS Neutrophils 5.5 10^3/ul (1.5-7.7); Eosinophil % 2.8 %; Hematocrit 34 % (35-47); Hemoglobin 11.7 g/dL (12.0-16.0); Lymphocyte % 24.1 %; Mean Corpuscular HGB Conc 35 g/dL (31-36); Mean Corpuscular Hemoglobin 28 pg (27-31); Mean Corpuscular Volume 81 fL (80-97); Mean Platelet Volume 7.1 fL (7.4-10.4); Platelet Count 286 10^3/uL (150-450); Red Blood Count 4.21 10^6 /uL (3.70-4.87); Red Cell Distribution Width 16 % (10-15); White Blood Count 8.4 10^3/uL (3.5-10.8)
[2020-02-03 06:26] LABS: BUN/Creatinine Ratio 18.3 (8-20); Calcium 8.7 mg/dL (8.6-10.3); EGFR African American 125.6 (>60); EGFR Non-African American 103.8 (>60); Magnesium 1.8 mg/dL (1.9-2.7); Potassium 3.7 mmol/L (3.5-5.0)
[2020-02-03 06:43] LABS: Urine Appearance Clear; Urine Bilirubin Negative (Negative); Urine Blood Negative (Negative); Urine Color Straw; Urine Glucose Negative (Negative); Urine Ketones Negative (Negative); Urine Nitrite Negative (Negative); Urine Protein Negative (Negative); Urine Specific Gravity 1.005 (1.010-1.030); Urine Urobilinogen Negative (Negative)
[2020-02-03] MEDS ORDERED: Perflutren Lipid Microsphere* 3 ML VIAL ONE (08:20)
[2020-02-03] MEDS ORDERED: Sertraline* 25 MG TAB PO SCH (09:00)
[2020-02-03] MEDS ORDERED: Valsartan TAB* 160 MG PO SCH ×2 (09:00→09:40)
[2020-02-03] MEDS ORDERED: Multivitamins/Minerals TAB PO SCH (09:00)
[2020-02-03] MEDS ORDERED: Magnesium Sulfate 1 GM IV* 1 GM/100 ML BAG IV ONE (09:08)
[2020-02-03 11:33] VITALS: BP 128/70
--- NOTE | 2020-02-03 13:30 | ECHO ---
*[facility]* [place] [address] Fax #: [phone] Transthoracic Echocardiogram Patient: Yuki Henriquez : 1965 Study Date: 02/03/2020 Age: 54 Gender: F HR: 58 bpm Height: 68 in /172.7 cm BSA: 2.36 m^2 Weight: 279.4 lb /127 kg BMI: 42.6 kg/m^2 *Draw Off Worker: Selina Eugene [facility] *Referring Physician: * Nora Carroll *Reading Physician: * Jerri Morocho MD Indications: Syncope. History: Risk factors: Former tobacco use. Hypertension. Conclusions Summary: - Procedure narrative: Image quality was fair. Definity administered. - Left ventricle: Systolic function is normal. The estimated ejection fraction is 55-60%. - Right ventricle: Systolic function is normal. - Tricuspid valve: There is trace to mild regurgitation. - Pulmonary arteries: Systolic pressure can not be accurately estimated. - No prior echocardiogram to compare. Study data: Transthoracic echocardiogram. Procedure: Transthoracic echocardiography was performed. Image quality was fair. The study was technically limited due to poor apical window availability. Intravenous Definity , 2 mls was administered. Complete 2D, spectral Doppler, and color flow Doppler. Location: Echo laboratory. Patient status: Inpatient. Patient room number: 445 01. Rhythm: Bradycardia. Findings Left ventricle: The cavity size is at the upper limits of normal. Wall thickness is mildly increased. Systolic function is normal. The estimated ejection fraction is 55-60%. Wall motion is normal; there are no regional wall motion abnormalities. Left ventricular diastolic function parameters are normal. Right ventricle: The cavity size is normal. Systolic function is normal. Left atrium: The atrium is mildly dilated. Right atrium: The atrium is normal in size. Mitral valve: The leaflets are normal thickness. There is no evidence of stenosis. There is no significant regurgitation. Aortic valve: The valve is probably trileaflet. The leaflets are normal thickness. There is no evidence of stenosis. There is no significant regurgitation. Tricuspid valve: The leaflets are normal thickness. There is no evidence of stenosis. There is trace to mild regurgitation. Pulmonic valve: Not well visualized. There is no significant regurgitation. Aorta: The aortic root appears normal. The aortic arch appears normal. Pericardium: There is no significant pericardial effusion. Pulmonary arteries: Systolic pressure can not be accurately estimated. Systemic veins: Inferior vena cava: Not well visualized. Measurements Left ventricle Value Ref Aortic valve Value Ref HARSHIL, LAX 5.1 cm 3.8 - 5.2 Kayla diam, ED 2.0 cm -------- ESD, LAX 3.5 cm 2.2 - 3.5 Peak v, S 1.52 m/sec -------- FS, LAX 31 % 27 - 45 VTI, S 36.1 cm -------- PW, ED, LAX (H) 1.0 cm 0.6 - 0.9 Mean grad, S 5.0 mm Hg -------- E', lat kayla, TDI 18.2 cm/sec >=10.0 Peak grad, S 9.0 mm Hg -------- E/e', lat kayla, 4 TDI Mitral valve Value Ref E', med kayla, TDI 12.9 cm/sec >=7.0 Peak E 0.68 m/sec -------- E/e', med kayla, 5 Peak A 0.62 m/sec --- ----- TDI Decel time 230 ms -------- E', avg, TDI 15.6 cm/sec Peak E/A ratio 1.1 --- ----- E/e', avg, TDI 4 <=14 Pulmonic valve Value Ref LVOT Value Ref Peak v, S 0.72 m/sec -------- Peak harman, S 1.2 m/sec Peak grad, S 2.0 mm Hg -------- Peak grad, S 6 mm Hg Mean grad, S 3 mm Hg Aortic root Value Ref Root diam 2.7 cm <4.4 Ventricular septum Value Ref Root max diam/bsa, (L) 1.2 cm/m^2 1.4 - IVS, ED (H) 1.1 cm 0.6 - 0.9 ED 2.2 Right ventricle Value Ref Ascending aorta Value Ref HARSHIL, LAX 2.8 cm AAo AP diam, S 2.5 cm -------- AAo AP diam/bsa, S 1.1 cm/m^2 -------- Left atrium Value Ref AP dim, ES 3.70 cm 2.70 - Aortic arch Value Ref 3.80 Arch diam 2.9 cm -------- ML dim, A4C 4.5 cm Arch diam/bsa 1.2 cm/m^2 -------- SI dim, A4C 5.8 cm Vol/bsa, ES, A/L (H) 35 ml/m^2 16 - 34 Decending aorta Value Ref Komal peak harman 0.88 m/sec -------- Right atrium Value Ref SI dim, ES 4.8 cm 3.4 - 5.3 Estimated RAP 8 mm Hg Legend: (L) and (H) ebony values outside specified reference range. Prepared and electronically signed by Jerri Morocho MD 02/03/2020 13:30
--- NOTE | 2020-02-04 06:17 | DS ---
CC: Dr. Luis Valentin * DISCHARGE SUMMARY: DATE OF ADMISSION: 02/02/20 DATE OF DISCHARGE: 02/03/20 PRIMARY CARE PROVIDER: Luis Valentin MD ATTENDING PHYSICIAN: Leesa Shannon MD * (dictated by KATIE Montemayor). PRIMARY DIAGNOSES: Syncope. SECONDARY DIAGNOSES: 1. Hypertension. 2. Incontinence. 3. Anxiety. STUDIES WHILE IN THE HOSPITAL: 1. CT brain without, impression: Normal CT of the brain. 2. Chest x-ray 2-view, impression: No radiographic evidence of acute cardiopulmonary disease. 3. Transthoracic echo, summary: LV systolic function normal. Estimated EF 55 % to 60%. RV systolic function normal. Trace to mild TR. Pulmonary artery systolic pressure cannot be accurately measured. DISCHARGE MEDICATIONS: Home medications: 1. Meclizine 12.5 to 25 mg p.o. t.i.d. p.r.n. dizziness. 2. Multivitamin/minerals 1 tab p.o. daily. 3. Olmesartan 20 mg p.o. daily. 4. Oxybutynin 10 mg p.o. daily. 5. Sertraline 25 to 50 mg p.o. daily. Discontinued home medications: 1. Hydrochlorothiazide. HISTORY OF PRESENT ILLNESS/HOSPITAL COURSE: Ms. Henriquez is a 54-year-old female with past medical history of hypertension, anxiety, who presented to the ER after a syncopal episode while working yesterday. For full and complete details, please see the history and physical dictated by Nora Carroll on 09/13, but in short, the patient reports that she was standing. She then suddenly felt warm and started seeing "sparkles." She felt lightheaded and dizzy. She then had a syncopal event. She reports that prior to this she was standing but she had sat down for few minutes prior to her syncopal event. She was admitted to the hospital for syncope workup. Orthostatics were obtained and the patient had some mild orthostasis when going from lying to sitting. She reports that her symptoms occurred when going from standing to sitting. She reports that she has been eating well and has changed her diet somewhat to be more healthy. She has been drinking lots of water. She does not feel that she was dehydrated. She had eaten prior to this event and therefore likely this is not due to hypoglycemia. She is on a diuretic still. Her blood pressure throughout her stay was 110 to 130s on only her home ARB, possibly dehydration could have been contributing to the patient's symptoms. An echo was obtained and was unremarkable for valvular abnormality. The patient was placed on tele overnight and was normal sinus rhythm throughout her stay. The patient likely suffered a syncopal event that was related to now with vasovagal. She was recommended to drink plenty of fluids and eat small frequent meals. We had a discussion about blood pressure management and I recommended discontinuation of hydrochlorothiazide and home monitoring of blood pressure with written log that she should bring to her primary care provider at followup. The patient is agreeable to this. She is agreeable to discharge home. Ms. Henriquez reports that she has had no episodes of dizziness, lightheadedness, or syncope since admission. She has been ambulating in the halls without any symptoms as well. She denies chest pain, shortness of breath , cough, fever, chills, abdominal pain, nausea, vomiting, diarrhea, constipation , myalgias, arthralgias, weakness, vision changes, headache. PHYSICAL EXAMINATION: Vital Signs: Temperature 97.7 oral, heart rate 58, respiratory rate 16, oxygen saturation 98% on room air, blood pressure 128/70. General: Ms. Henriquez is a well developed, well nourished, obese, middle- aged white female, who is sitting at the edge of her bed. She is resting comfortably and appears to be in no acute distress. She is breathing comfortably on room air. HEENT: PERRL. EOMI. Nonicteric sclerae. Hearing is grossly intact. Oral mucosa membranes are moist. There are no lesions. Pharynx is clear. Tongue is at midline. Palate elevate symmetrically. Cardiovascular: Regular rate and rhythm with S1, S2 present. No murmurs, rubs , clicks or gallops. There is no JVD. There is no peripheral edema. Pulmonary : Symmetrical chest expansion without use of accessory muscles. Clear to auscultation bilaterally without rhonchi, wheeze, or rales. Abdomen: Bowel sounds in all quadrants. Soft, nontender to palpation. Musculoskeletal: Full range of motion without pain or deformities. Neuro: The patient is awake. She is alert and oriented x3. Cranial nerves II through XII are grossly intact. She moves all of her extremities. Her motor strength is 5/5 in upper and lower extremities bilaterally. Linesperson strength is equal. She has a steady gait without impairment. DISCHARGE PLAN: Ms. Henriquez will be discharged to home. CONDITION: Good. DIET: Heart healthy. ACTIVITY: As tolerated. MEDICATIONS: Discontinue hydrochlorothiazide and follow up with primary care provider. EDUCATION: 1. Monitor blood pressure at least once daily. Keep a written log and bring this to your primary care provider appointment. 2. Follow up with primary care provider in 4 to 7 days. 3. Return to the ER or nearest hospital if you experienced any return or worsening of symptoms, chest pain or discomfort, shortness of breath, dizziness , lightheadedness, presyncope, syncope, high fevers, chills, night sweats or any other other worrisome signs or symptoms. This is a summarized report of a complex medical history and hospital stay. For further details, please see the entire medical record. TIME SPENT: Approximately 30 minutes was spent on this discharge, greater than half that time was spent [id number] with the patient, discussing discharge plans and instructions. KATIE DAVILA [id number]/[facility] #: [id number] CORY
== END 2020-02-03 15:39 | disposition home or self-care (01) ==
LOC: ED 13:22 → MEDTELE 18:59
PROVIDERS: ADMIT Family Medicine; ATTEND Internal Medicine
DX: R55 Syncope and collapse (principal); I10 Essential (primary) hypertension; R32 Unspecified urinary incontinence; F41.9 Anxiety disorder, unspecified; Z79.899 Other long term (current) drug therapy; Z87.891 Personal history of nicotine dependence; R94.31 Abnormal electrocardiogram [ECG] [EKG]
CPT/HCPCS: 36415; 70450; 71046; 80048; 80053; 81003; 83735; 84443; 84484; 85025; 93005; 93306; 96365; 99284; A9270-GY; C8929; G0378; J1650; J3475

== ENCOUNTER 2020-05-17 09:42 | Observation (INO) ==
[~2020-05-17 09:42] MED LIST changes: -Buffered Lidocaine 1% SYRIN* 1 ML/SYRINGE INTRADERM ONE; +Lactated Ringers 1000 ml BAG 1,000 ML IV SCH
[2020-05-17] MEDS ORDERED: ceFAZolin 1 GM ADVAN(*) 1 GM ADDV.VIAL IVPB ONE (09:54)
[2020-05-17] MEDS ORDERED: ceFAZolin 2 GM PREMIX in ORs 2 GM/50 ML BAG ONE (09:54)
[2020-05-17] MEDS ORDERED: Midazolam 2 mg/2 ml VIAL 1 mg/ml 2 ml VIAL (2 mg) ONE (10:44)
[2020-05-17] MEDS ORDERED: Lidocaine 1% VIAL 10 MG/ML VIAL ONE (11:57)
[2020-05-17] MEDS ORDERED: ROPIVACAINE 5 MG/ML 30 ML BTL (0.5%) ONE ×2 (11:58→12:20)
[2020-05-17] MEDS ORDERED: Bupivacaine 0.5% SDV PF 30ML VIAL ONE (12:30)
[2020-05-17] MEDS ORDERED: fentaNYL 100 mcg/2 ml 50 MCG/ML VIAL ONE (12:30)
[2020-05-17] MEDS ORDERED: Succinylcholine 200 mg VIAL 20 mg/ml 10 ml VIAL (200 mg) ONE (12:31)
[2020-05-17] MEDS ORDERED: Propofol 10 MG/ML 20 ML BTL ONE (12:31)
[2020-05-17] MEDS ORDERED: Glycopyrrolate IV 0.2 MG/ML 1 ML VIAL ONE (12:31)
[2020-05-17] MEDS ORDERED: Rocuronium 50 mg VIAL 10 mg/ml 5 ml VIAL (50 mg) ONE (12:35)
[2020-05-17] MEDS ORDERED: EPHEDrine (Pressors) 50 MG/ML VIAL ONE (12:58)
[2020-05-17] MEDS ORDERED: Dexamethasone IV 4 MG/ML VIAL 1 ml VIAL ONE (13:43)
[2020-05-17] MEDS ORDERED: Ondansetron 4 mg VIAL 2 MG/ML 2 ml VIAL ONE (13:43)
[2020-05-17] MEDS ORDERED: Sugammadex 500 MG/5 ML 5 ml VIAL IV PUSH ONE (14:01)
[2020-05-17] MEDS ORDERED: diPHENhydraMINE IV 50 MG/ML 1 ml VIAL (BENADRYL) IV PRN (15:00)
[2020-05-17] MEDS ORDERED: Ondansetron ODT 4 mg TAB 4 MG TAB PO PRN (15:00)
[2020-05-17] MEDS ORDERED: Magnesium Hydroxide LIQ 30 ML UDC PO PRN (15:00)
[2020-05-17] MEDS ORDERED: Morphine 2 MG/ML SYRINGE IV PRN (15:00)
[2020-05-17] MEDS ORDERED: Lactated Ringers 1000 ml BAG 1,000 ML IV SCH (15:00)
[2020-05-17] MEDS ORDERED: Ondansetron 4 mg VIAL 2 MG/ML 2 ml VIAL IV PRN ×2 (15:00→15:19)
[2020-05-17] MEDS ORDERED: Lactulose 30 ml UDC PO PRN (15:00)
[2020-05-17] MEDS ORDERED: diPHENhydraMINE 25 mg TAB PO PRN (15:00)
[2020-05-17] MEDS ORDERED: fentaNYL 100 mcg/2 ml 50 MCG/ML VIAL IV PRN (15:19)
[2020-05-17] MEDS ORDERED: Naloxone 0.4 mg VIAL 0.4 mg/ml 1 ml VIAL IV PRN (15:19)
[2020-05-17] MEDS ORDERED: oxyCODONE/Acetamin 5/325 mg TAB ONE (16:38)
[2020-05-17] MEDS: oxyCODONE/Acetamin 5/325 mg TAB PO PRN ×2 (16:39→21:26)
[2020-05-17] MEDS: Magnesium Hydroxide LIQ 30 ML UDC PO SCH (20:11)
[2020-05-17] MEDS: ceFAZolin 1 GM ADVAN(*) 1 GM in NS 0.9% 50 ML 50 ML IVPB SCH (20:13)
[2020-05-18] MEDS: oxyCODONE/Acetamin 5/325 mg TAB PO PRN ×3 (03:28→12:50)
[2020-05-18] MEDS: ceFAZolin 1 GM ADVAN(*) 1 GM in NS 0.9% 50 ML 50 ML IVPB SCH ×2 (04:58→12:49)
[2020-05-18 05:54] LABS: Hematocrit 33 % (35-47); Hemoglobin 11.3 g/dL (12.0-16.0); Mean Platelet Volume 7.6 fL (7.4-10.4); Platelet Count 281 10^3/uL (150-450)
[2020-05-18 06:28] LABS: BUN/Creatinine Ratio 16.9 (8-20); Calcium 8.4 mg/dL (8.6-10.3); EGFR Non-African American 85.2 (>60); Potassium 4.3 mmol/L (3.5-5.0)
[2020-05-18] MEDS: Magnesium Hydroxide LIQ 30 ML UDC PO SCH (08:55)
[2020-05-18] MEDS ORDERED: Vitamin THERAPEUTIC TAB PO SCH (09:00)
[2020-05-18 11:31] VITALS: BP 109/55
== END 2020-05-18 14:35 | disposition home or self-care (01) ==
LOC: OR 09:42 → SSU 09:42
PROVIDERS: ADMIT Orthopaedic Surgery Adult Reconstructive Orthopaedic Surgery; ATTEND Orthopaedic Surgery Adult Reconstructive Orthopaedic Surgery

== ENCOUNTER 2022-07-11 05:40 | Inpatient (IN) ==
[2022-07-11] MEDS ORDERED: Scopolamine 1 mg/72hr PATCH ONE (05:56)
[2022-07-11] MEDS ORDERED: ceFAZolin 2 GM in NS PREMIX 2 GM/100 ML BAG IVPB ONE (05:57)
[2022-07-11] MEDS ORDERED: Heparin 5000 UNITS/ML 1 mL VIAL ONE (05:57)
[2022-07-11] MEDS ORDERED: ceFAZolin 1 GM in Dextrose 1 GM/50 ML BAG ONE (05:57)
[2022-07-11] MEDS ORDERED: Buffered Lidocaine 1% SYRIN 1 ml INTRADERM ONE ×2 (06:00)
[2022-07-11] MEDS ORDERED: Lactated Ringers 1000 ml BAG 1,000 ML IV SCH ×2 (06:00)
[2022-07-11] MEDS ORDERED: Bupivacaine 0.25% EPI 200,000 30 ML SDV ONE (06:53)
[2022-07-11] MEDS ORDERED: Methylene Blue 0.5 % 50 MG/10 ML AMP IV ONE (06:53)
[2022-07-11] MEDS ORDERED: Dexamethasone IV 4 MG/ML VIAL 1 ml VIAL ONE (07:06)
[2022-07-11] MEDS ORDERED: fentaNYL 100 mcg/2 ml 50 MCG/ML VIAL ONE (07:06)
[2022-07-11] MEDS ORDERED: Propofol 10 MG/ML 20 ML BTL ONE (07:06)
[2022-07-11] MEDS ORDERED: Lidocaine 2% PF 5 ML VIAL ONE (07:06)
[2022-07-11] MEDS ORDERED: Ondansetron 4 mg VIAL 2 MG/ML 2 ml VIAL ONE ×2 (07:06→11:24)
[2022-07-11] MEDS ORDERED: Rocuronium 50 mg VIAL 10 mg/ml 5 ml VIAL (50 mg) ONE (07:07)
[2022-07-11] MEDS ORDERED: Phenylephrine IV 10 MG/ML 1 ml VIAL ONE (07:47)
[2022-07-11] MEDS ORDERED: Acetaminophen IV 1 GM/100ML 1,000 MG/100 ML BAG IV ONE (07:52)
[2022-07-11] MEDS ORDERED: Ondansetron 4 mg VIAL 2 MG/ML 2 ml VIAL IV PRN (08:27)
[2022-07-11] MEDS ORDERED: oxyCODONE/Acetamin 5/325 mg TAB PO PRN (08:27)
[2022-07-11] MEDS ORDERED: Naloxone 0.4 mg VIAL 0.4 mg/ml 1 ml VIAL IV PRN (08:27)
[2022-07-11] MEDS ORDERED: fentaNYL 100 mcg/2 ml 50 MCG/ML VIAL IV PRN (08:27)
[2022-07-11] MEDS ORDERED: HYDROmorphone 0.5 MG/0.5 ML SYRINGE IV SLOW PU PRN (11:00)
[2022-07-11] MEDS ORDERED: HYDROmorphone 1 MG/1 ML SYRINGE IV SLOW PU PRN (11:00)
[2022-07-11] MEDS ORDERED: Acetaminophen IV 1 GM/100ML 1,000 MG/100 ML BAG IV PRN (11:00)
[2022-07-11] MEDS: Lactated Ringers 1000 ml BAG 1,000 ML IV SCH ×2 (13:17→20:11)
[2022-07-11] MEDS: Heparin 5000 UNITS/ML 1 mL VIAL SUBCUT SCH ×2 (14:06→22:29)
[2022-07-11] MEDS: Ondansetron 4 mg VIAL 2 MG/ML 2 ml VIAL IV PRN (19:31)
[2022-07-12] MEDS: Lactated Ringers 1000 ml BAG 1,000 ML IV SCH ×2 (03:03→10:14)
[2022-07-12] MEDS: Ondansetron 4 mg VIAL 2 MG/ML 2 ml VIAL IV PRN (03:03)
[2022-07-12] MEDS: Heparin 5000 UNITS/ML 1 mL VIAL SUBCUT SCH ×2 (06:06→14:11)
[2022-07-12 11:48] VITALS: BP 136/66
[2022-07-12] MEDS ORDERED: D5W 1/2 NS KCl 20 meq 1000 ml 1,000 ML IV SCH (13:16)
== END 2022-07-12 16:05 | disposition home or self-care (01) | DRG 621 ==
LOC: AA 05:40 → SSU 11:00
PROVIDERS: ADMIT Surgery; ATTEND Surgery

== ENCOUNTER 2024-05-05 07:58 | Observation (INO) ==
[~2024-05-05 07:58] MED LIST changes: -Lactated Ringers 1000 ml BAG 1,000 ML IV SCH; +Metoclopramide 5 MG/ML VIAL (10 mg) IV PRN; +NS 0.45% 1000 ml BAG 1,000 ML IV SCH; +Naloxone 0.4 mg VIAL 0.4 mg/ml 1 ml VIAL IV PRN; +Ondansetron 4 mg VIAL 2 MG/ML 2 ml VIAL IV PRN; +fentaNYL 100 mcg/2 ml 50 MCG/ML VIAL IV PRN
[2024-05-05] MEDS ORDERED: Dexamethasone IV 4 MG/ML VIAL 1 ml VIAL ONE ×2 (08:13→10:48)
[2024-05-05] MEDS ORDERED: Propofol 10 MG/ML 20 ML BTL ONE (08:13)
[2024-05-05] MEDS ORDERED: Bupivacaine 0.5% PF 10 ML SDV VIAL INJ ONE (08:13)
[2024-05-05] MEDS ORDERED: Phenylephrine IV 10 MG/ML 1 ml VIAL ONE (08:13)
[2024-05-05] MEDS ORDERED: Lidocaine 2% PF 5 ML VIAL ONE (08:13)
[2024-05-05] MEDS ORDERED: Ondansetron 4 mg VIAL 2 MG/ML 2 ml VIAL ONE ×2 (08:13→15:32)
[2024-05-05] MEDS ORDERED: Sterile Water for Inj 10 ML ONE (08:13)
[2024-05-05] MEDS ORDERED: fentaNYL 100 mcg/2 ml 50 MCG/ML VIAL ONE ×2 (08:16→15:32)
[2024-05-05] MEDS ORDERED: Midazolam 2 mg/2 ml VIAL 1 mg/ml 2 ml VIAL (2 mg) ONE (08:16)
[2024-05-05 08:48] LABS: Rapid COVID-19 Molecular Undetected (Undetected)
[2024-05-05] MEDS ORDERED: Scopolamine 1 mg/72hr PATCH ONE (09:06)
[2024-05-05] MEDS ORDERED: ceFAZolin 2 GM PREMIX 2 GM/50 ML BAG ONE (09:07)
[2024-05-05] MEDS ORDERED: Tranexamic Acid 1 GM/100ML BAG 2,000 MG/200 ML BAG IV ONE (09:07)
[2024-05-05] MEDS: Buffered Lidocaine 1% SYRIN 1 ml INTRADERM ONE (09:23)
[2024-05-05] MEDS: Lactated Ringers 1000 ml BAG 1,000 ML IV SCH ×2 (09:23→16:15)
[2024-05-05] MEDS: Scopolamine 1 mg/72hr PATCH TRANSDERM ONE (09:24)
[2024-05-05] MEDS ORDERED: Rocuronium 50 mg VIAL 10 mg/ml 5 ml VIAL (50 mg) ONE (10:19)
[2024-05-05] MEDS ORDERED: ROPIVACAINE 5 MG/ML 30 ML BTL (0.5%) ONE (12:57)
[2024-05-05] MEDS ORDERED: HYDROmorphone 0.5 MG/0.5 ML SYRINGE ONE ×3 (13:10→13:42)
[2024-05-05] MEDS ORDERED: Morphine 2 MG/ML SYRINGE IV PRN (14:23)
[2024-05-05] MEDS ORDERED: Calcium Carb (TUMS) 500 mg CHEW TAB PO PRN (14:23)
[2024-05-05] MEDS ORDERED: Ondansetron ODT 4 mg TAB 4 MG TAB PO PRN (14:23)
[2024-05-05] MEDS ORDERED: Magnesium Hydroxide LIQ 30 ML UDC PO PRN (14:23)
[2024-05-05] MEDS ORDERED: Lactulose 30 ml UDC PO PRN (14:23)
[2024-05-05] MEDS ORDERED: Ondansetron 4 mg VIAL 2 MG/ML 2 ml VIAL IV PRN (14:23)
[2024-05-05] MEDS: Acetaminophen IV 1 GM/100ML 1,000 MG/100 ML BAG IV ONE (18:58)
[2024-05-05] MEDS: ceFAZolin 2 GM PREMIX 2 GM/50 ML BAG IV SCH (19:59)
[2024-05-05] MEDS: Magnesium Hydroxide LIQ 30 ML UDC PO SCH (20:08)
[2024-05-06 07:26] LABS: Hematocrit 28.9 % (35-45); Mean Platelet Volume 8.2 fL (7.5-11.2); Platelet Count 256 10^3/uL (150-450)
[2024-05-06] MEDS: Vitamin THERAPEUTIC TAB PO SCH (08:13)
[2024-05-06 10:16] VITALS: BP 125/56
[2024-05-06 10:26] LABS: Calcium 8.7 mg/dL (8.6-10.3); Creatinine, Serum 0.62 mg/dL (0.51-0.95); Potassium 4.1 mmol/L (3.5-5.0); eGFR CKD-EPI 101.9 (>60)
== END 2024-05-06 13:50 | disposition home or self-care (01) ==
LOC: SSU 07:58 → OR 07:58
PROVIDERS: ADMIT Orthopaedic Surgery Adult Reconstructive Orthopaedic Surgery; ATTEND Orthopaedic Surgery Adult Reconstructive Orthopaedic Surgery